=== PATIENT | female | born 1985 | race Caucasian/White ===

== ENCOUNTER 2016-08-11 16:17 | Emergency (ER) | payer OTHER ==
[~2016-08-11] VITALS: Ht 160 cm; Wt 68.0 kg
[2016-08-11] MEDS ORDERED: KLONOPIN0.5 M1 PO (18:09)
--- NOTE | 2016-08-11 18:09 | ED GENERAL ADULT ---
History of Present Illness General Chief Complaint: General Adult Stated Complaint: PT NEEDS KLONOPIN WITHOUT MIGHT SEIZURE Source: patient Exam Limitations: no limitations Vital Signs & Intake/Output Vital Signs & Intake/Output Vital Signs Date Time Temp Pulse Resp B/P Pulse O2 O2 Flow FiO2 Ox Delivery Rate 08/11 1820 84 125/80 ED Intake and Output 08/12 0000 08/11 1200 Intake Total Output Total Balance Patient 150 lb Weight Allergies Coded Allergies: Fish Containing Products (Severe, ANAPHALACTIC 08/11/16) Sulfa (Sulfonamide Antibiotics) (Severe, ANAPHALACTIC REACTION 08/11/16) shellfish derived (Intermediate, HIVES 08/11/16) Uncoded Allergies: ?IV NAUSEA MED (Intermediate, FACIAL SWELLING 08/19/10) Reconcile Medications Clonazepam (Klonopin) 0.5 MG TABLET 1 TAB PO BIDP PRN Triage Note: TRIAGE: PT TO ER C/C REQUESTING REFILL OF KLONOPIN 0.5 MG BID. RAN OUT OF SAME LAST WEEK. CONCERNED ABOUT SEIZURES, NO HX OF SAME. "I'M ALSO OUT OF AMBIEN". Triage Nurses Notes Reviewed? yes : No Patient currently breastfeeds: No HPI: This patient is a 30-year-old female who presented to the emergency department today requesting a refill of both Klonopin and Ambien. She reported that she was at an [facility] appointment today when the RN at [facility] noticed that she was, "more shaky than normal." He suggested that she come to the emergency department for a refill of her medication. The patient reported that she missed her last doctor's appointment on Wednesday when she would've had the medication refilled because she was sick. The patient reported that she has been feeling shaky and "off." She denied any fevers, chills, chest pain, difficulty breathing, or abdominal pain. Past History Travel History Traveled to [place] past 21 day No Medical History Any Pertinent Medical History? see below for history Neurological: NONE EENT: NONE Cardiovascular: NONE Respiratory: NONE Gastrointestinal: NONE Hepatic: NONE Renal: NONE Musculoskeletal: osteoarthritis, TOE FX Psychiatric: anxiety Endocrine: hypothyroidism Blood Disorders: NONE Cancer(s): NONE PRIMER CHARGER/Reproductive: NONE Influenza Vaccine: 05/28/10 Surgical History Surgical History: non-contributory Psychosocial History What is your primary language Georgian Tobacco Use: Quit >30 days ago ETOH Use: occasional use Illicit Drug Use: denies illicit drug use Family History Hx Contributory? No Review of Systems Review of Systems Constitutional: Reports: no symptoms. EENTM: Reports: no symptoms. Respiratory: Reports: no symptoms. Cardiovascular: Reports: no symptoms. GI: Reports: no symptoms. Genitourinary: Reports: no symptoms. Musculoskeletal: Reports: no symptoms. Skin: Reports: no symptoms. Neurological/Psychological: Reports: see HPI. All Other Systems: Reviewed and Negative Physical Exam Physical Exam General Appearance: well developed/nourished, alert, awake, anxious Comments: Well-developed well-nourished person in no acute distress HEENT: Normal EENT exam, head normocephalic, moist mucous membranes Pupils equally round and reactive to light. Neck: Supple, no lymphadenopathy Back: Normal gait Cardiovascular: Regular rate and rhythm with no murmurs, rubs or gallops Respiratory: No respiratory distress. Breath sounds clear to auscultation bilaterally Extremities: normal and equal pulses Neuro: Alert oriented x3, cranial nerves II through XII grossly intact. Skin: No appreciable rash on exposed skin, skin is warm and dry. Psych: Mood and affect is normal Core Measures ACS in differential dx? No CVA/TIA Diagnosis: No Severe Sepsis Present: No Septic Shock Present: No Progress Differential Diagnoses I considered the following diagnoses in my evaluation of the patient: [ Medication refill, medication seeking, generalized anxiety disorder] Plan of Care: This patient is a 30-year-old female past medical history including seizures who presented requesting a refill of her Klonopin and Ambien. This patient will have an appointment by Wednesday of next week. Discussed with patient that I cannot refill her Ambien, but I can refill her Klonopin until she sees her doctor. Initial ED EKG: none Departure Departure Disposition: HOME OR SELF CARE Condition: Stable Clinical Impression Primary Impression: Medication refill Referrals: SARY LEON MD (PCP/Family) Additional Instructions: take medication as directyed. return for any worsening symptoms or concerns. Departure Forms: Customer Survey General Discharge Information Prescriptions: Current Visit Scripts Clonazepam (Klonopin) 1 TAB PO BIDP PRN #10 TAB Critical Care Note Critical Care Note Critical Care Time: non-applicable
[2016-08-11 18:20] VITALS: BP 125/80
== END 2016-08-11 18:20 ==
LOC: ERH 16:17
DX: Z76.0 Encounter for issue of repeat prescription (principal)
CPT/HCPCS: 99281